=== PATIENT | female | born 1965 | race Two or more races ===

== ENCOUNTER 2023-09-12 12:27 | Emergency (ER) | payer OTHER ==
[~2023-09-12] VITALS: Ht 160 cm; Wt 63.0 kg
[~2023-09-12 12:27] MED LIST: ALLERGY RELIEF10 MG; BREO ELLIPTA 21 EACH; BUMETANIDE0.5 MG; CLONAZEPAM1 MG; DICLOFENAC SODI50 GM; FAMOTIDINE20 MG; GEMFIBROZIL600 MG; HYOSCYAMINE0.125 M1 SL; IBANDRONATE SO150 MG; OMEGA-3 ACID ETH1 GM; OPTIMAL D31250 MCG; PANTOPRAZOLE SO40 MG; PREDNISONE10 M2; ROSUVASTATIN CA10 MG; SIMETHICONE125 M1 PO; SPIRIVA RESPIMAT4 GM; SUCRALFATE1 GM/10 ML; SYNTHROID100 MCG; VENLAFAXINE HCL75 M1
[2023-09-12] MEDS ORDERED: ANALPRAM HC 2.530 GM RECTAL (16:30)
[2023-09-12] MEDS ORDERED: KETO10TA2 PO (16:39)
== END 2023-09-12 17:30 | disposition home or self-care (01) ==
LOC: ER 12:28
DX: K64.8 Other hemorrhoids (principal); Z88.0 Allergy status to penicillin; I10 Essential (primary) hypertension; Z87.09 Personal history of other diseases of the respiratory system
CPT/HCPCS: 96372; 99284; J1100; J1885; J3490